=== PATIENT | female | born 1980 | race Two or more races ===

== ENCOUNTER 2018-02-25 11:38 | Emergency (ER) | payer OTHER ==
[~2018-02-25] VITALS: Ht 165.1 cm; Wt 56.7 kg
[~2018-02-25 11:38] MED LIST: ORPH100T PO; ULTRACET PO; VASOFLEX D1 CA1 EACH PO
== END 2018-02-25 14:34 | disposition home or self-care (01) ==
LOC: ER 11:38
DX: S93.402A Sprain of unspecified ligament of left ankle, initial encounter (principal); X50.3XXA Overexertion from repetitive movements, initial encounter; Y93.89 Activity, other specified; Y92.098 Other place in other non-institutional residence as the place of occurrence of the external cause; Y99.8 Other external cause status

== ENCOUNTER 2024-01-20 04:10 | Emergency (ER) | payer OTHER ==
[~2024-01-20] VITALS: Ht 165.1 cm; Wt 62.1 kg
[2024-01-20] MEDS ORDERED: TRIAMCINOLONE ACETONIDE 40 MG/ML VIAL IM STA (06:08)
[2024-01-20] MEDS ORDERED: OxyCODONE HCL/APAP UD (PERCOCET) PO STA (06:08)
[2024-01-20] MEDS ORDERED: PERCOCET 5-3251 EACH PO (06:13)
[2024-01-20] MEDS ORDERED: TRIAMCINOLONE ACETONIDE 40 MG/ML VIAL ONE (06:18)
== END 2024-01-20 06:25 ==
LOC: ER 04:11
DX: R68.84 Jaw pain (principal); Z88.6 Allergy status to analgesic agent; Z91.041 Radiographic dye allergy status

== ENCOUNTER 2024-12-05 08:12 | Emergency (ER) | payer OTHER ==
[~2024-12-05] VITALS: Ht 165.1 cm; Wt 61.2 kg
[~2024-12-05 08:12] MED LIST changes: +PERCOCET 5-3251 EACH PO
[2024-12-05] MEDS ORDERED: RINGERS SOLUTION,LACTATED 1,000 ML IV STA (08:40)
[2024-12-05] MEDS ORDERED: FAMOtidine 10 MG/ML (4ML VIAL) IV STA (08:41)
[2024-12-05] MEDS ORDERED: METOCLOPRAMIDE HCL 10 MG in DEXTROSE 5 % IN WATER 50 ML IV ONE (08:45)
[2024-12-05] MEDS ORDERED: METOCLOPRAMIDE HCL 5 MG/ML VIAL ONE (09:04)
[2024-12-05] MEDS ORDERED: FAMOTIDINE/PF 20 MG/2 ML VIAL ONE (09:04)
[2024-12-05 09:16] LABS: BASO % 0.2 % (0.1-1.2); EOS # 0.13 (0.04-0.54); EOS % 3.1 % (0.7-7.0); HEMATOCRIT 39.7 % (34.1-44.9); HEMOGLOBIN 13.1 g/dL (11.2-15.7); LYMPH # 1.24 (1.18-3.74); LYMPH % 29.9 % (19.3-53.1); MEAN CORPUSCULAR HEMOGLOBIN 27.5 pg (25.6-32.2); NEUT # 2.16 (1.56-6.13); NEUT % 52.1 % (34.0-71.1); PLATELET COUNT 256 K/uL (163-369); RED BLOOD COUNT 4.76 M/uL (3.93-5.22); RED CELL DISTRIBUTION WIDTH 13.2 % (11.6-14.4)
[2024-12-05 09:50] LABS: PH,URINE 5.5 (5.0-8.0); URINE APPEARANCE Clear; URINE BILIRRUBIN Negative (NEGATIVE); URINE BLOOD Moderate; URINE COLOR Dark Yellow; URINE GLUCOSE Negative (NEGATIVE); URINE KETONE 15 (NEGATIVE); URINE LEUKOCYTE Negative; URINE NITRATE Negative; URINE PROTEIN 30 (NEGATIVE)
[2024-12-05 09:54] LABS: COVID-19 AG NEGATIVE (NEGATIVE)
[2024-12-05 09:55] LABS: URINE BACTERIA 2070.9 uL (0.0-1933); URINE CAST 1.91 uL (0.0-1.40); URINE EPITHELIAL CELLS 43.3 uL (0.0-38.8); URINE RBC 51.1 uL (0.0-20.8); URINE WBC 25.9 uL (0.0-23.2)
[2024-12-05 09:59] LABS: CALCIUM 8.9 mg/dL (8.5-10.1); CREATININE SERUM 0.88 mg/dL (0.55-1.02); GFR 69.49; POTASSIUM 3.73 mEq/L (3.5-5.1)
[2024-12-05 10:14] LABS: URINE MUCUS HEAVY
[2024-12-05 10:20] LABS: MONO % 14.5 % (4.7-12.5)
[2024-12-05] MEDS ORDERED: PIPERACILLIN/TAZOBACTAM SODIUM 3.375 GM VIAL IV STA (11:35)
[2024-12-05] MEDS ORDERED: PIPERACILLIN/TAZOBACTAM SODIUM 3.375 GM VIAL IV ONE (11:48)
[2024-12-05] MEDS ORDERED: ACETAMINOPHEN 500 MG GEL..CAP PO ONE ×2 (14:15→14:24)
== END 2024-12-05 15:22 | disposition home or self-care (01) ==
LOC: ER 08:17
PROVIDERS: General Practice
DX: K52.9 Noninfective gastroenteritis and colitis, unspecified (principal); N39.0 Urinary tract infection, site not specified; Z20.822 Contact with and (suspected) exposure to COVID-19; Z88.6 Allergy status to analgesic agent; Z91.013 Allergy to seafood; Z91.041 Radiographic dye allergy status